=== PATIENT | female | born 2000 | race Caucasian/White ===

== ENCOUNTER 2021-06-04 12:01 | Emergency (ER) | payer OTHER ==
[~2021-06-04] VITALS: Ht 162.6 cm; Wt 65.3 kg
[2021-06-04 12:17] VITALS: BP 146/90
--- NOTE | 2021-06-04 12:42 | PHYS DOC ---
Past History Past Medical History: No Pertinent History (SATURNINO WINSTON DO) Past Surgical History: No Surgical History (AKI RAHMAN APRN) Past Surgical History: No Surgical History (SATURNINO WINSTON DO) Alcohol Use: Occasionally (AKI RAHMAN APRN) Smoking: Quit Greater Than 1 Year Alcohol Use: Occasionally Drug Use: None (SATURNINO WINSTON DO) General Adult EDM: Chief Complaint: ABDOMINAL PAIN HPI: HPI: Patient is a 21-year-old female who presents to the emergency department for umbilical abdominal pain that started 3 days ago. Pain is worse with movement and when "she gets jolted". Patient denies any nausea, vomiting, diarrhea, fevers, urinary symptoms. She has no medical history and no surgical history. Last meal was at 12:00 (AKI RAHMAN APRN) Review of Systems: Review of Systems: Constitutional: negative unless reported in HPI Eyes: negative unless reported in HPI HENT: negative unless reported in HPI Respiratory: negative unless reported in HPI Cardiovascular: negative unless reported in HPI GI: negative unless reported in HPI : negative unless reported in HPI Musculoskeletal: negative unless reported in HPI Integument: negative unless reported in HPI Neurologic: negative unless reported in HPI Endocrine: negative unless reported in HPI Lymphatic: negative unless reported in HPI Psychiatric: negative unless reported in HPI (AKI RAHMAN APRN) Allergies: Allergies: Allergies Coded Allergies Type Severity Reaction Last Updated Verified No Known Drug Allergies 06/04/21 No (AKI RAHMAN APRN) Physical Exam: PE: Constitutional: Well developed, well nourished, no acute distress, non-toxic appearance. [] HENT: Normocephalic, atraumatic, bilateral external ears normal, oropharynx moist, no oral exudates, nose normal. [] Eyes: PERRL, EOMI, conjunctiva normal, no discharge. [] Neck: Normal range of motion, no stridor Cardiovascular:Heart rate regular rhythm, no murmur [] Lungs & Thorax: Bilateral breath sounds clear to auscultation [] Abdomen: Bowel sounds normal, soft, right upper quadrant and McBurney's point tenderness, no rigidity, no guarding, no masses, no pulsatile masses. [] Skin: Warm, dry, no erythema, no rash. [] Back: Normal range of motion Extremities: No tenderness, no cyanosis, no clubbing, ROM intact, no edema. [] Neurologic: Alert and oriented X 3, normal motor function, normal sensory function, no focal deficits noted. [] Psychologic: Affect normal, judgement normal, mood normal. [] (AKI RAHMAN APRN) Current Patient Data: Labs: Laboratory Tests Test 06/04/21 12:34 POC Urine HCG, Qualitative hcg negative (Negative) Vital Signs: Vital Signs Date Time Temp Pulse Resp B/P (MAP) Pulse Ox O2 Delivery O2 Flow Rate FiO2 06/04/21 12:17 98.6 126 16 146/90 (108) 98 Room Air (AKI RAHMAN APRN) EKG: EKG: [] (AKI RAHMAN APRN) Radiology/Procedures: Radiology/Procedures: []PROCEDURE: CT ABD PELV W/ IV CONTRST ONLY CT ABDOMEN+PELVIS W History: Reason: ruq/rlq, mcburneys point tenderness / Spl. Instructions: / History: Technique: After the administration of intravenous contrast, CT imaging was performed of the abdomen and pelvis. Multiplanar images are reviewed. Exposure: One or more of the following individualized dose reduction techniques were utilized for this examination: 1. Automated exposure control 2. Adjustment of the mA and/or kV according to patient size 3. Use of iterative reconstruction technique. Comparison: None Findings: Lower chest: No consolidation or pleural effusion. Abdomen and pelvis: The liver, spleen, adrenal glands, pancreas and gallbladder are unremarkable. No biliary ductal dilatation. Patent portal and hepatic veins. No renal calculus. No hydronephrosis. Decompressed urinary bladder. Distended stool-filled rectum. Normal appendix. No evidence of bowel obstruction. No pathologic lymphadenopathy. . Involuting right ovarian follicle measures 1.5 cm. Minimal right adnexal free fluid, likely physiologic. Bones: No pathologic osseous lesions. Impression: 1. Involuting right ovarian follicle with small adjacent free fluid, may relate to recently ruptured hemorrhagic cyst. 2. Distended stool-filled rectum. Electronically signed by: Elida Liang DO (06/04/2021 1:09 PM) [facility] DICTATED AND SIGNED BY: ELIDA LIANG DO DATE: 06/04/21 1302 CC: AKI RAHMAN APRN; PCP,NO ~MTH0 0 (AKI RAHMAN APRN) Heart Score: C/O Chest Pain: N/A Risk Factors: Risk Factors: DM, Current or recent (<one month) smoker, HTN, HLP, family history of CAD, obesity. Risk Scores: Score 0 - 3: 2.5% MACE over next 6 weeks - Discharge Home Score 4 - 6: 20.3% MACE over next 6 weeks - Admit for Clinical Observation Score 7 - 10: 72.7% MACE over next 6 weeks - Early Invasive Strategies (AKI RAHMAN APRN) Course & Med Decision Making: Course & Med Decision Making Pertinent Labs and Imaging studies reviewed. (See chart for details) [] Patient presents to the emergency department for umbilical abdominal pain that started 3 days ago. Work-up in the ER consisted of blood work, urinalysis and CT imaging of abdomen and pelvis as patient does have McBurney's point tenderness. Patient treated with IV fluids. Blood work was unremarkable. Urinalysis did not show any infection. CT scan of abdomen and pelvis shows a ruptured right cyst and some constipation. Patient advised to take MiraLAX for constipation at home and anti-inflammatory medications. I discussed with patient all findings and diagnostic testing as well as the need to follow-up with PCP for further evaluation and treatment or return to the ER if any new or worsening symptoms. Strict return precautions were also discussed at length. Patient voiced understanding and agreement with the plan. Patient is hemodynamically stable at the time of disposition. (AKI RAHMAN APRN) Dragon Disclaimer: Dragon Disclaimer: This electronic medical record was generated, in whole or in part, using a voice recognition dictation system. (AKI RAHMAN APRN) Departure Departure: Impression: Primary Impression: Abdominal pain Qualified Codes: R10.33 - Periumbilical pain Disposition: HOME / SELF CARE / HOMELESS Condition: GOOD Referrals: PCP,NO (PCP) Patient Instructions: Abdominal Pain (Nonspecific) Additional Instructions: You were seen in the emergency department today for abdominal pain. Your blood work and urine did not show any thing abnormal. Your CT scan of your abdomen and pelvis showed a ruptured right cyst and constipation which could be attributing to your abdominal pain. Please take anti-inflammatory medications at home for your pain. You can use MiraLAX for constipation. Increase your fluids. Follow-up with your primary care provider tomorrow regarding your ER visit. Return to the emergency department if you develop worsening of your abdominal pain, intractable nausea or vomiting, blood in your stools or vomit, high fevers refractory to treatment or any new or worsening concerns. Attending Signature Attending Signature I have reviewed the PA/TOOL CRIB ATTENDANT's note and plan of care. I was available for consultation as needed during the patient's visit in the emergency department. I agree with the clinical impression, plan, and disposition. (SATURNINO WINSTON DO) AKI RAHMAN APRN Jun 04, 2021 12:42 SATURNINO WINSTON DO Jun 04, 2021 21:40
[2021-06-04] MEDS ORDERED: IOHEXOL 300 MG/ML 75 ML VIAL. IV ONE (12:45)
[2021-06-04] MEDS: IV NORMAL SALINE 1,000ML 1,000 ML IV SCH ×2 (12:45→12:56)
[2021-06-04] MEDS ORDERED: CONTRAST GIVEN. MC PRN (13:00)
[2021-06-04 13:11] LABS: BASO % 0 % (0-3); EOS # 0.1 x10^3/uL (0.0-0.7); EOS % 1 % (0-3); HEMATOCRIT 40.5 % (36.0-47.0); HEMOGLOBIN 13.7 g/dL (12.0-15.5); LYMPH # 2.2 x10^3/uL (1.0-4.8); LYMPH % 33 % (24-48); MEAN CORPUSCULAR HEMOGLOBIN 29 pg (25-35); MEAN CORPUSCULAR HGB CONC 34 g/dL (31-37); MEAN CORPUSCULAR VOLUME 85 fL (79-100); MONO # 0.4 x10^3/uL (0.0-1.1); MONO % 5 % (0-9); NEUT % 60 % (31-73); PLATELET COUNT 225 x10^3/uL (140-400); RED BLOOD COUNT 4.77 x10^6/uL (3.50-5.40); RED CELL DISTRIBUTION WIDTH 12.8 % (11.5-14.5); WHITE BLOOD COUNT 6.6 x10^3/uL (4.0-11.0)
--- NOTE | 2021-06-04 13:12 | RAD ---
CT ABDOMEN+PELVIS W History: Reason: ruq/rlq, mcburneys point tenderness / Spl. Instructions: / History: Technique: After the administration of intravenous contrast, CT imaging was performed of the abdomen and pelvis. Multiplanar images are reviewed. Exposure: One or more of the following individualized dose reduction techniques were utilized for thi s examination: 1. Automated exposure control 2. Adjustment of the mA and/or kV according to patient size 3. Use of iterative reconstruction technique. Comparison: None Findings: Lower chest: No consolidation or pleural effusion. Abdomen and pelvis: The liver, spleen, adrenal glands, pancreas and gallbladder are unremarkable. No biliary ductal dilatation. Patent portal and hepatic veins. No renal calculus. No hydronephrosis. Dec ompressed urinary bladder. Distended stool-filled rectum. Normal appendix. No evidence of bowel obstruction. No pathologic lymph adenopathy. . Involuting right ovarian follicle measures 1.5 cm. Minimal right adnexal free fluid, li taylor physiologic. Bones: No pathologic osseous lesions. Impression: 1. Involuting right ovarian follicle with small adjacent free fluid, may relate to recently ruptured hemorrhagic cyst. 2. Distended stool-filled rectum. Electronically signed by: Lucio Roach DO (06/04/2021 1:09 PM) [facility]
[2021-06-04 13:15] LABS: CALCIUM 8.9 mg/dL (8.5-10.1); CREATININE 0.7 mg/dL (0.6-1.0); GFR 106.7
[2021-06-04 13:31] LABS: ALBUMIN/GLOBULIN RATIO 1.1 (1.0-1.7); TOTAL BILIRUBIN 0.5 mg/dL (0.2-1.0); TOTAL PROTEIN 7.5 g/dL (6.4-8.2)
[2021-06-04 14:40] LABS: BILIRUBIN,URINE NEG (NEG); CLARITY,URINE CLEAR; COLOR,URINE YELLOW; GLUCOSE,URINE NEG (NEG)
[2021-06-04 14:41] LABS: BACTERIA,URINE 0 /HPF (0-FEW); NITRITE,URINE NEG (NEG); RBC,URINE 0 /HPF (0-2); SQUAMOUS EPITHELIAL CELL,UR FEW /LPF; UROBILINOGEN,URINE 0.2 mg/dL (0.2 mg/dL); WBC,URINE 0 /HPF (0-4)
== END 2021-06-04 15:36 | disposition home or self-care (01) ==
LOC: ER 12:01
DX: R10.33 Periumbilical pain (principal); Z87.891 Personal history of nicotine dependence
CPT/HCPCS: 36415; 74177; 80053; 81001; 81025; 83690; 85025; 96360; 99285; J7030; Q9967

== ENCOUNTER 2021-10-01 06:49 | Emergency (ER) | payer OTHER ==
[~2021-10-01] VITALS: Ht 162.6 cm; Wt 65.8 kg
[2021-10-01 06:49] VITALS: BP 117/70
[2021-10-01] MEDS ORDERED: IBUPROFEN 600 MG TABLET. PO ONE (07:30)
[2021-10-01] MEDS ORDERED: ACETAMINOPHEN 325 MG TABLET PO ONE (07:30)
--- NOTE | 2021-10-01 07:43 | PHYS DOC ---
Past History Past Medical History: No Pertinent History Additional Past Medical Histor: seasonal allergies Past Surgical History: Other Additional Past Surgical Histo: dental Smoking: Quit Greater Than 1 Year Alcohol Use: Occasionally Drug Use: None Adult General Chief Complaint Chief Complaint: FEVER HPI HPI Patient is a 21 year old female who presents with complaint of fever, body aches, congestion, cough, and nausea. The patient states that her symptoms started last night and have worsened this morning. Patient has not measured her temperature at home but did feel hot. Also notes generalized headache. Cough has been minimally productive of clear sputum. Notes worsening sore throat which she attributes to her coughing. Denies chest pain, tightness, or shortnes s of breath. Not currently experiencing abdominal pain, vomiting, or diarrhea. Has not taken medications for symptoms at this time. Does not take any daily medications but does note history of occasional migraine headaches. The patient states that she attended a concert 3 nights ago. Review of Systems Review of Systems Constitutional: Fever, chills [] Eyes: Denies change in visual acuity, redness, or eye pain [] HENT: Nasal congestion, runny nose, sore throat [] Respiratory: Cough, denies shortness of breath [] Cardiovascular: Denies chest pain or edema [] GI: Nausea, denies abdominal pain, vomiting, bloody stools or diarrhea [] : Denies dysuria or hematuria [] Musculoskeletal: Myalgias, denies joint pain or swelling [] Integument: Denies rash or skin lesions [] Neurologic: Headache, denies focal weakness or sensory changes [] All other systems were reviewed and found to be within normal limits, except as documented in this note. Current Medications Current Medications Current Medications Medications (Trade) Dose Ordered Sig/Luis Felipe Start Time Stop Time Status Last Admin Dose Admin Acetaminophen (Tylenol) 650 mg 1X ONCE 10/01/21 07:30 10/01/21 07:32 DC 10/01/21 07:31 650 MG Ibuprofen (Motrin) 600 mg 1X ONCE 10/01/21 07:30 10/01/21 07:32 DC 10/01/21 07:30 600 MG Allergies Allergies Allergies Coded Allergies Type Severity Reaction Last Updated Verified No Known Drug Allergies 10/01/21 No Physical Exam Physical Exam Constitutional: Alert, febrile, appears ill but in no acute distress. [] HENT: Normocephalic, atraumatic, bilateral external ears normal, TMs clear bilaterally, oropharynx erythematous, no oral exudates, nose normal. [] Eyes: PERRLA, EOMI, conjunctiva normal, no discharge. [] Neck: Normal range of motion, no tenderness, supple, no stridor. [] Cardiovascular: Tachycardia, regular rhythm, no murmur [] Lungs & Thorax: Bilateral breath sounds clear to auscultation [] Abdomen: Bowel sounds normal, soft, no tenderness, no masses, no pulsatile masses. [] Skin: Warm, dry, no erythema, no rash. [] Back: No tenderness, no CVA tenderness. [] Extremities: No tenderness, no cyanosis, no clubbing, ROM intact, no edema. [] Neurologic: Alert and oriented X 3, normal motor function, normal sensory function, no focal deficits noted. [] Current Patient Data Vital Signs Vital Signs Date Time Temp Pulse Resp B/P (MAP) Pulse Ox O2 Delivery O2 Flow Rate FiO2 10/01/21 06:49 101.3 137 20 117/70 (86) 98 Room Air Lab Results Laboratory Tests Test 10/01/21 06:31 10/01/21 07:10 Bedside Urine HCG, Qualitative hcg negative Urine Collection Type Unknown Urine Color Yellow Urine Clarity Cloudy Urine pH 6.0 Urine Specific [place] >=1.030 Urine Protein Neg Urine Glucose (UA) Neg mg/dL Urine Ketones (Stick) Neg mg/dL Urine Blood Neg Urine Nitrite Neg Urine Bilirubin Neg Urine Urobilinogen Dipstick 0.2 mg/dL Urine Leukocyte Esterase Neg Urine RBC Occ /HPF Urine WBC 1-4 /HPF Urine Squamous Epithelial Cells Many /LPF Urine Bacteria Mod /HPF Urine Mucus Marked /LPF Influenza Type A (Rapid) Negative Influenza Type B (Rapid) Negative SARS-CoV-2 Antigen (Rapid) Positive Current Medications Medications (Trade) Dose Ordered Sig/Luis Felipe Route PRN Reason Start Time Stop Time Status Last Admin Dose Admin Acetaminophen (Tylenol) 650 mg 1X ONCE PO 10/01/21 07:30 10/01/21 07:32 DC 10/01/21 07:31 Ibuprofen (Motrin) 600 mg 1X ONCE PO 10/01/21 07:30 10/01/21 07:32 DC 10/01/21 07:30 EKG EKG Not performed [] Radiology/Procedures Radiology/Procedures Not performed [] Heart Score C/O Chest Pain: No Risk Factors: Risk Factors: DM, Current or recent (<one month) smoker, HTN, HLP, family history of CAD, obesity. Risk Scores: Risk Factors: DM, Current or recent (<one month) smoker, HTN, HLP, family history of CAD, obesity. Course & Med Decision Making Course & Med Decision Making Pertinent Labs and Imaging studies reviewed. (See chart for details) Patient given Motrin and Tylenol in the emergency department for treatment of fever. The patient's COVID test was found to be positive. Respiratory status is stable. Patient appropriate for outpatient treatment at this time. Recommend minimum home quarantine for 5 days from onset of symptoms. Patient informed that she may return to work if acute symptoms resolve and she remains masked while at work for a total of 10 days post onset. Advised supportive care measures at home including rest, hydration, and use of [id number] medications as needed for symptoms. Recommend follow-up in the next 10 days with primary care provider for reevaluation and recommend return to the emergency department for any worsening symptoms. Patient voiced understanding and in agreement with treatment plan. [] Dragon Disclaimer Dragon Disclaimer This electronic medical record was generated, in whole or in part, using a voice recognition dictation system. Departure Departure: Impression: Primary Impression: COVID-19 Disposition: 01 HOME / SELF CARE / HOMELESS Condition: STABLE Referrals: PCPSHERYL (PCP) Additional Instructions: You have been tested for or diagnosed with COVID-19. It is an infection caused by a new type of coronavirus. COVID-19 will cause cold-like or mild flu symptoms in most. It can cause more severe symptoms like problems breathing in some. There is no treatment for COVID-19. The body will clear the infection over time. Self-care will help to ease discomfort. Steps to Take: Self-Care Rest as needed. Healthy habits may help you feel better. Steps include: Choose healthy foods including fruits and vegetables. Drink water throughout the day. Get plenty of sleep each night. If you smoke, try to quit. It may ease breathing. Avoid alcohol. Keep Others Healthy The virus can spread to others. Droplets are released every time you sneeze or cough. The droplets can get into the mouth, nose, or eyes of people near you and lead to infection. To lower the chances of spreading COVID-19 to others: Stay at home until your doctor has said it is safe to leave. If you tested positive this will mean staying isolated until both of the following are true: At least 7 days have passed since the start of illness. You are free of fever for at least 72 hours without the use of medicine. During this time: - Avoid public areas, events, or transportation. Do not return to work or school until your doctor has said it is safe to do so. - Call ahead if you need to go to a medical center. Let them know you may have COVID-19. It will help them guide you where to go. They may also ask you to wear a facemask when you come to the office. - If you call for emergency medical services, let them know you may have COVID- 19. While at home: - Try to avoid close contact with others. Stay about 6 feet away. - If possible, spend most of your time in a separate room from others. - Use a face mask if you will be in close contact with others such as sharing a room or vehicle. - Have someone wipe down common surfaces in the home. Use household fun house attendant every day on areas like doorknobs, counters, or sinks. - Cough or sneeze into a tissue. Throw the tissue away right after use. If a tissue is not available, cough or sneeze into your elbow. - Wash your hands often. Wash them after sneezing or coughing. Use soap and water and wash for at least 20 seconds. Alcohol based hand immersion metal cleaner can be used if soap and water is not available. - Do not prepare food for others. Avoid sharing personal items like forks, spoons, or toothbrushes. - Avoid close contact with pets while you are sick. There is no evidence of the virus passing to pets. This is a safety step until more is known about this virus. Isolation can be frustrating. Social interaction can help. Keep in touch with friends and family through phone and tech options. You can still interact with others in your home, just keep a safe distance of about 6 feet. Follow-up: Your doctors office will check in with you to see if there are any changes in your health. You may be asked to keep track of symptoms to share with them. They will also let you know when you are clear to be in public again. Problems to Look Out For: Contact your doctor if your recovery is not going as you expect. Get emergency care if you have problems such as: - Trouble breathing - Nonstop chest pain or pressure - Changes in awareness, confusion, or problems waking - Lips or face have bluish color - Worsening of symptoms If you think you have an emergency, call for emergency medical services right away. [facility] MD October 01, 2021 07:43
[2021-10-01 07:44] LABS: BACTERIA,URINE MOD /HPF (0-FEW); CLARITY,URINE CLOUDY; COLOR,URINE YELLOW; GLUCOSE,URINE NEG (NEG); NITRITE,URINE NEG (NEG); RBC,URINE OCC /HPF (0-2); SQUAMOUS EPITHELIAL CELL,UR MANY /LPF; UROBILINOGEN,URINE 0.2 mg/dL (0.2 mg/dL)
[2021-10-01 07:53] LABS: INFLUENZA A PATIENT NEGATIVE (NEGATIVE); INFLUENZA B PATIENT NEGATIVE (NEGATIVE)
== END 2021-10-01 08:05 | disposition home or self-care (01) ==
LOC: ER 06:49
DX: U07.1 COVID-19 (principal); Z87.891 Personal history of nicotine dependence
CPT/HCPCS: 81001; 81025; 87070; 87086; 87428; 87880; 99283